=== PATIENT | female | born 1940 | race Caucasian/White ===

== ENCOUNTER 2020-07-05 13:10 | Emergency (ER) | payer MEDICARE ==
[~2020-07-05] VITALS: Ht 172.7 cm; Wt 70.5 kg
[2020-07-05 13:22] VITALS: Ht 172.7 cm; Wt 70.5 kg
[2020-07-05 14:26] LABS: BASOPHILS 0.5 % (0-2); EOSINOPHILS 1.5 % (0-7); HEMATOCRIT 42.7 % (36.0-48.0); HEMOGLOBIN 13.9 g/dL (12-16); IMMATURE GRANULOCYTES 0.3 % (0-5); LYMPHOCYTES 20.9 % (15-50); MCH 29.3 pg (26.0-34.0); MCHC 32.6 g/dL (31.0-37.0); MCV 89.9 fL (80.0-100.0); MEAN PLATELET VOLUME 9.7 fL (7.4-10.4); MONOCYTES 5.1 % (2-11); NEUTROPHILS 71.7 % (40-80); PLATELET COUNT 211 10x3/uL (130-400); RBC 4.75 10x6/uL (4.00-5.40); RDW 13.6 % (11.5-14.5); WBC 6.7 10x3/uL (4.8-10.8)
[2020-07-05 14:29] LABS: ANION GAP 10.5 mmol/L (8-16); CARBON DIOXIDE 27.1 mmol/L (21.0-32.0); CREATININE - SERUM 1.1 mg/dL (0.6-1.3); POTASSIUM - SERUM 3.6 mmol/L (3.5-5.1)
[2020-07-05 14:35] LABS: ALBUMIN 3.8 g/dL (3.4-5.0); BILIRUBIN - TOTAL 0.77 mg/dL (0.2-1.3); PROTEIN - SERUM 7.6 g/dL (6.4-8.2)
[2020-07-05 17:04] LABS: APTT 28.2 SECONDS (22.8-39.4); INR 1.03 (0.85-1.17); PROTIME 13.4 SECONDS (11.6-15.0)
[2020-07-05] MEDS ORDERED: NORVASC2.5 MG PO (17:42)
[2020-07-05 19:23] VITALS: BP 185/76
== END 2020-07-05 19:23 | disposition home or self-care (01) ==
LOC: D.ER 13:10
PROVIDERS: Emergency Medicine
DX: I10 Essential (primary) hypertension (principal); N18.9 Chronic kidney disease, unspecified; R42 Dizziness and giddiness; R73.9 Hyperglycemia, unspecified